=== PATIENT | male | born 1965 | race Two or more races ===

== ENCOUNTER 2024-10-27 08:19 | Inpatient (IN) | payer MEDICAID, OTHER ==
[~2024-10-27] VITALS: Ht 165.1 cm; Wt 61.9 kg
--- NOTE | 2024-10-27 08:50 | ED.PDOC ---
HPI Comments 59 year old male presents to the ED with a chief compliant of chest pain onset today (10/27/24) about 1 hour ago. Patient is from a boarding [facility] [place]. Patient states she woke up about 1 hour ago due to chest pain radiating to epigastric region. Patient has also been experiencing constipation, last bowel movement was 10 days ago. PMHx HTN, IN. Denies shortness of breath, nausea, vomiting, diarrhea,headache, dizziness, dysuria, hematuria. No other symptoms or modifying factors present at this time. Chief Complaint: Chest Pain Time Seen by MD: 08:22 Primary Care Provider: UNKNOWN Reviewed Notes: Medications, Allergies Allergies: Coded Allergies: NO KNOWN ALLERGIES (Unverified , 10/27/24) Information Source: Patient, Emergency Med Personnel Mode of Arrival: EMS Severity: Moderate Timing: Hours Duration: Since onset Prehospital treatment: None Location: Chest (L) Radiation: Abdomen Quality: Sharp Onset: At Rest Cardiac Risk Factors: HTN PE Risk Factors: None History of: Similar pain in past, IN Modifying Factors: Nothing Associated Signs and Symptoms: Abdominal Pain Past Medical History PAST MEDICAL HISTORY: HTN, IN Surgical History: PTCA Family History Family History: Reviewed,noncontributory to illness, No family hx of Cancer, No family hx of DM, No family hx of Heart luann, No family hx of HTN, No family hx ofKidney luann, No family hx of Liver luann, No family hx of Lung luann, No family hx of Stroke Social History Smoker: Non-Smoker Alcohol: Denies ETOH Use Drugs: Denies Drug Use Lives In: Assisted Care Constitutional: denies: chills, diaphoresis, fatigue, fever, malaise, sweats, weakness, others EENTM: denies: blurred vision, double vision, ear bleeding, ear discharge, ear drainage, ear pain, ear ringing, eye pain, eye redness, hearing loss, mouth pain, mouth swelling, nasal discharge, nose bleeding, nose congestion, nose pain, photophobia, tearing, throat pain, throat swelling, voice changes, others Respiratory: denies: cough, hemoptysis, orthopnea, SOB at rest, shortness of breath, SOB with excertion, stridor, wheezing, others Cardiovascular: reports: chest pain; denies: dizzy spells, diaphoresis, Dyspnea on exertion, edema, irregular heart beat, left arm pain, lightheadedness, palpitations, PND, syncope, others Gastrointestinal: reports: abdominal pain, constipated; denies: abdomen distended, blood streaked bowels, diarrhea, dysphagia, difficulty swallowing, hematemesis, melena, nausea, poor appetite, poor fluid intake, rectal bleeding, rectal pain, vomiting, others Genitourinary: denies: burning, dysuria, flank pain, frequency, hematuria, incontinence, penile discharge, penile sore, pain, testicle pain, testicle swelling, urgency, others Neurological: denies: dizziness, fainting, headache, left sided numbness, left sided weakness, numbness, paresthesia, pre-existing deficit, right sided numbness, right sided weakness, seizure, speech problems, tingling, tremors, weakness, others Musculoskeletal: denies: back pain, gout, joint pain, joint swelling, muscle pain, muscle stiffness, neck pain, others Integumetry: denies: bruises, change in color, change in hair/nails, dryness, laceration, lesions, lumps, rash, wounds, others Allergic/Immunocompromised: denies: Difficulty Healing, Frequent Infections, Hives, Itching, others Hematologic/Lymphatic: denies: anemia, blood clots, easy bleeding, easy bruising, swollen glands, others Endocrine: denies: excessive hunger, excessive sweating, excessive thirst, excessive urination, flushing, intolerance to cold, intolerance to heat, unexplained weight gain, unexplained weight loss, others Psychiatric: denies: anxiety, bipolar disorder, depression, hopeless, panic disorder, schizophrenia, sleepless, suicidal, others All Other Systems: Reviewed and Negative Physical Exam General Appearance: Moderate Distress, Normal HEENT: Normal ENT Inspection, Pharynx Normal, TMs Normal Neck: Full Range of Motion, Non-Tender, Normal, Normal Inspection Respiratory: Chest Non-Tender, Lungs Clear, No Accessory Muscle Use, No Respiratory Distress, Normal Breath Sounds Cardiovascular: No Edema, No JVD, No Murmur, No Gallop, Normal Peripheral Pulses, Regular Rate/Rhythm Breast Exam: Deferred Gastrointestinal: No Organomegaly, Non Tender, No Pulsatile Mass, Normal Bowel Sounds, Soft Genitalia: Deferred Pelvic: Deferred Rectal: Deferred Extremities: No calf tenderness, Normal capillary refill, Normal inspection, Normal range of motion, Non-tender, No pedal edema Musculoskeletal : Apperance: Normal Neurologic: Alert, 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 Was a procedure done?: No CP Differential Dx Differential Diagnosis: A-fib, A-Flutter, Angina, Anxiety / Panic Attack, Atrial Dysrhythmia, Electrolyte Disorder X-Ray, Labs, Meds, VS Vital Signs Date Time Temp Pulse Resp B/P (MAP) Pulse Ox O2 Delivery O2 Flow Rate FiO2 10/27/24 09:29 60 10/27/24 09:24 63 10/27/24 09:19 Room Air* 0 21 10/27/24 09:18 98.2 66 18 160/86 (110) 98 98.2 10/27/24 09:01 63 10/27/24 08:19 63 10/27/24 08:19 98.4 72 16 170/76 (107) 96 98.4 Lab Test 10/27/24 09:14 10/27/24 08:42 Range/Units Sodium Level Pending Potassium Level Pending Chloride Level Pending Carbon Dioxide Level Pending Anion Gap Pending Blood Urea Nitrogen Pending Creatinine Pending Glomerular Filtration Rate Calc Pending BUN/Creatinine Ratio Pending Serum Glucose Pending Calcium Level Pending White Blood Count 4.6 4.4-10.8 10^3/uL Red Blood Count 5.67 4.5-5.90 10^6/uL Hemoglobin 17.5 13.5-17.5 g/dL Hematocrit 53.1 H 41.0-53.0 % Mean Corpuscular Volume 93.7 80.0-100.0 fL Mean Corpuscular Hemoglobin 30.8 28.0-32.0 pg Mean Corpuscular Hemoglobin Concent 32.9 32.0-36.0 g/dL Red Cell Distribution Width 13.4 11.8-14.3 % Platelet Count 45 L 140-450 10^3/uL Mean Platelet Volume 9.4 6.9-10.8 fL Neutrophils (%) (Auto) 63.1 37.0-80.0 % Lymphocytes (%) (Auto) 24.9 10.0-50.0 % Monocytes (%) (Auto) 7.7 0.0-12.0 % Eosinophils (%) (Auto) 3.4 0.0-7.0 % Basophils (%) (Auto) 0.9 0.0-2.0 % Neutrophils # (Auto) 2.9 1.6-8.6 10 ^3/uL Lymphocytes # (Auto) 1.1 0.4-5.4 10 ^3/uL Monocytes # (Auto) 0.4 0-1.3 10 ^3/uL Eosinophils # (Auto) 0.2 0-0.8 10 ^3/uL Basophils # (Auto) 0 0-0.2 10 ^3/uL Nucleated Red Blood Cells 0.2 % Troponin I High Sensitivity 11 </=54 ng/L Patient alert. Complaining of chest pain. EKG reviewed does show changes. Vitals stable. Recently had a stent placement. Hemoglobin within normal limits. WBC within normal limits. Cardiac marker within normal limits. Reviewed his previous visit. Explained to the patient. Continue cardiac monitoring. Time of 1ST Reevaluation: 08:52 Reevaluation 1ST: Unchanged Patient Education/Counseling: Diagnosis, Treatment, Prognosis Family Education/Counseling: No Family Present Departure 1 Departure Time of Disposition: 09:39 Impression: Primary Impression: Chest pain of unknown etiology Disposition: ADMITTED INPATIENT Admit to: Med Surg Condition: Guarded Critical Care Note Critical Care Time?: Yes (90 min-critical care time only) Critical care comment: Continue monitor Stability Stability form required: No Heart Score Heart Score: Heart Score Response (Comments) Value History Slightly Suspicious 0 EKG Normal 0 Age 45-64 1 Risk Factors >3 or Hx ASHD 2 Troponin Normal limit 0 Total 3 I personally scribed for GINETTE AMADO MD ([email or web address]) on 10/27/24 at 08:50. Electronically submitted by Rhonda Rausch ([email or web address]). I personally scribed for GINETTE AMADO MD ([email or web address]) on 10/27/24 at 09:01. Electronically submitted by Rhonda Rausch ([email or web address]). GINETTE AMADO MD October 27, 2024 08:50
[2024-10-27 08:57] LABS: Basophils # (auto) 0 10 ^3/uL (0-0.2); Lymphocytes # (auto) 1.1 10 ^3/uL (0.4-5.4); Monocytes # (auto) 0.4 10 ^3/uL (0-1.3); Neutrophils # (auto) 2.9 10 ^3/uL (1.6-8.6); Nucleated Red Blood Cells % 0.2 %; Red Cell Distribution Width 13.4 % (11.8-14.3); White Blood Cell 4.6 10^3/uL (4.4-10.8)
[2024-10-27 09:02] LABS: Basophils % (auto) 0.9 % (0.0-2.0); Eosinophils # (auto) 0.2 10 ^3/uL (0-0.8); Eosinophils % (auto) 3.4 % (0.0-7.0); Hematocrit 53.1 % (41.0-53.0); Hemoglobin 17.5 g/dL (13.5-17.5); Lymphocytes % (auto) 24.9 % (10.0-50.0); Mean Corpuscular Hemoglobin 30.8 pg (28.0-32.0); Mean Corpuscular Hgb Conc. 32.9 g/dL (32.0-36.0); Mean Corpuscular Volume 93.7 fL (80.0-100.0); Monocytes % (auto) 7.7 % (0.0-12.0); Neutrophils % (auto) 63.1 % (37.0-80.0); Platelet Count (auto) 45 10^3/uL (140-450); Red Blood Cells 5.67 10^6/uL (4.5-5.90)
--- NOTE | 2024-10-27 09:31 | ECG ---
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
[2024-10-27 10:12] LABS: Anion Gap 7 (5-15); Calcium 9.8 mg/dL (8.7-10.4); Carbon Dioxide 24 mmol/L (20-31); Chloride 111 mmol/L (98-107); Potassium 3.8 mmol/L (3.5-5.1); Sodium 142 mmol/L (136-145)
[2024-10-27 10:21] LABS: BUN/Creatinine Ratio 10.7 (10.0-20.0); Blood Urea Nitrogen 9 mg/dL (9-23); Glucose 103 mg/dL (74-106)
--- NOTE | 2024-10-27 13:13 | DVH ---
Procedure: XY KUB ABDOMEN SINGLE VIEW Study Date and Requested Time: 10/27/2024 12:42 PM History: CONSTIPATION Comparison: None Findings/ Impression: Nonspecific bowel gas pattern. No evidence of bowel obstruction or ileus. Moderate amount of fecal ma terial within the colon. No abnormal calcifications are noted. The lung bases are clear. No evidence of acute bony abnormalities. Partially imaged short tubular density overlying the left femoral head w ith additional round densities overlying the left hemipelvis which are most likely external to the pa tient
[2024-10-27] MEDS ORDERED: ACETAMINOPHEN 325 MG TAB PO PRN (13:30)
[2024-10-27] MEDS ORDERED: ONDANSETRON HCL 4 MG/2 ML VIAL IV PRN (13:30)
[2024-10-27] MEDS ORDERED: TICA90TA PO (13:32)
[2024-10-27] MEDS ORDERED: FURO20TA4 PO (13:32)
[2024-10-27] MEDS ORDERED: INSU100S4 SC (13:32)
[2024-10-27] MEDS ORDERED: CARV6.2551 PO (13:32)
[2024-10-27] MEDS ORDERED: ATOR-507 PO (13:32)
[2024-10-27] MEDS ORDERED: DAPA1TAB4 PO (13:32)
[2024-10-27] MEDS ORDERED: HYDR50TA47 PO (13:32)
[2024-10-27] MEDS ORDERED: GAB100C PO (13:32)
[2024-10-27] MEDS ORDERED: SACU1TAB PO (13:32)
--- NOTE | 2024-10-27 13:56 | DVHHP2 ---
History of Present Illness Reason for Visit: Chest pain History of Present Illness Howard Penn is a 59-year-old male with past medical history of CVA, RI, and hypertension, who came in for chest pain. Patient is a poor historian. He states his stroke has made it difficult for him to remember things. He states he woke up this morning with right sided chest pain that radiates to his right shoulder. He states the pain radiates across the top of his chest and that he thinks it is due to stress. [place] and the place stresses him out. He states there are 3 people in a room and it is a stressful environment. He states he has chronic pain in his right arm/shoulder due to a stroke and having a stent placed there. 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 Past Surgical History: Other (Stents placed to neck and right arm) Smoke: <1 pack per day ALCOHOL: none Drugs: None Lives: Other (board and care facility) Domestic Violence: Neg Review of Systems Constitutional: No: Fever, Chills, Sweats, Weakness, Malaise, Other Eyes: No: Pain, Vision change, Conjunctivae inflammation, Eyelid inflammation, Other, Redness ENT: No: Ear pain, Ear discharge, Nose pain, Nose discharge, Nose congestion, Mouth pain, Mouth swelling, Throat pain, Throat swelling, Other Respiratory: No: Cough, Dry, Shortness of breath, SOB with excertion, Wheezing, Hemoptysis, Pleuritic Pain, Sputum, Wheezing, Other Cardiovascular: Chest Pain; No: Palpitations, Orthopnea, Paroxysmal Noc. Dyspnea, Edema, Lt Headedness, Other Gastrointestinal: Constipation; No: Nausea, Vomiting, Abdominal Pain, Diarrhea, Melena, Hematochezia, Other Genitourinary: No Dysuria, No Frequency, No Incontinence, No Hematuria, No Retention, No Other Musculoskeletal: No: other, neck pain, shoulder pain, arm pain, back pain, hand pain, leg pain, foot pain Skin: No: Rash, Lesions, Jaundice, Bruising, Other Neurological: No: Weakness, Numbness, Incoordination, Change in speech, Confusion, Seizures, Other Allergies: Coded Allergies: NO KNOWN ALLERGIES (Unverified , 10/27/24) Medications Current Medications Medications Dose Ordered Sig/Anastasiya Route Start Time Stop Time Status Last Admin Dose Admin Acetaminophen/ Hydrocodone Bitart 1 tab Q4HP PRN PO 10/27/24 13:30 UNV Ondansetron HCl 4 mg Q4HP PRN IV 10/27/24 13:30 UNV Docusate Sodium 100 mg BIDPRN PRN PO 10/27/24 13:30 UNV Acetaminophen 650 mg Q6HP PRN PO 10/27/24 13:30 UNV Lactulose 30 ml DAILYPRN PRN PO 10/27/24 13:30 UNV Furosemide 20 mg DAILY PO 10/28/24 10:00 UNV Gabapentin 100 mg TID PO 10/27/24 14:00 UNV Sacubitril/ Valsartan 1 tab DAILY PO 10/28/24 10:00 UNV Ticagrelor 90 mg BID PO 10/27/24 22:00 UNV Patient Own Medication 1 tab HS PO 10/27/24 22:00 UNV Patient Own Medication 1 tab BID PO 10/27/24 22:00 UNV Patient Own Medication 1 tab DAILY PO 10/28/24 10:00 UNV Patient Own Medication 1 tab TID PO 10/27/24 14:00 UNV Patient Own Medication 10 unit DAILY SC 10/28/24 10:00 UNV Exam Vital Signs Vital Signs Date Time Temp Pulse Resp B/P (MAP) Pulse Ox O2 Delivery O2 Flow Rate FiO2 10/27/24 12:00 62 15 148/67 (94) 95 10/27/24 09:19 Room Air* 0 21 10/27/24 09:18 98.2 98.2 General Appearance: Alert, Oriented X3, Cooperative HEENT: Atraumatic, PERRLA Respiratory: Clear to auscultation, Normal air movement Cardiovascular: Regular rate, Normal S1, Normal S2 Abdominal: Normal bowel sounds, Soft, No tenderness Extremities: No clubbing, No cyanosis, No edema, Normal pulses, Other (weakness in right arm) Skin: No breakdown, No significant lesion Neuro: Other (decreased strength on right side, uses a walker to ambulate) Psych/Mental Status: Mood NL Labs/Xrays Labs Test 10/27/24 11:59 10/27/24 09:36 10/27/24 08:42 Range/Units Troponin I High Sensitivity 12 </=54 ng/L Sodium Level 142 136-145 mmol/L Potassium Level 3.8 3.5-5.1 mmol/L Chloride Level 111 H 98-107 mmol/L Carbon Dioxide Level 24 20-31 mmol/L Anion Gap 7 5-15 Blood Urea Nitrogen 9 9-23 mg/dL Creatinine 0.84 0.700-1.30 mg/dL Glomerular Filtration Rate Calc 101 >90 mL/min BUN/Creatinine Ratio 10.7 10.0-20.0 Serum Glucose 103 74-106 mg/dL Calcium Level 9.8 8.7-10.4 mg/dL White Blood Count 4.6 4.4-10.8 10^3/uL Red Blood Count 5.67 4.5-5.90 10^6/uL Hemoglobin 17.5 13.5-17.5 g/dL Hematocrit 53.1 H 41.0-53.0 % Mean Corpuscular Volume 93.7 80.0-100.0 fL Mean Corpuscular Hemoglobin 30.8 28.0-32.0 pg Mean Corpuscular Hemoglobin Concent 32.9 32.0-36.0 g/dL Red Cell Distribution Width 13.4 11.8-14.3 % Platelet Count 45 L 140-450 10^3/uL Mean Platelet Volume 9.4 6.9-10.8 fL Neutrophils (%) (Auto) 63.1 37.0-80.0 % Lymphocytes (%) (Auto) 24.9 10.0-50.0 % Monocytes (%) (Auto) 7.7 0.0-12.0 % Eosinophils (%) (Auto) 3.4 0.0-7.0 % Basophils (%) (Auto) 0.9 0.0-2.0 % Neutrophils # (Auto) 2.9 1.6-8.6 10 ^3/uL Lymphocytes # (Auto) 1.1 0.4-5.4 10 ^3/uL Monocytes # (Auto) 0.4 0-1.3 10 ^3/uL Eosinophils # (Auto) 0.2 0-0.8 10 ^3/uL Basophils # (Auto) 0 0-0.2 10 ^3/uL Nucleated Red Blood Cells 0.2 % Procedure: XY KUB ABDOMEN SINGLE VIEW Findings/ Impression: Nonspecific bowel gas pattern. No evidence of bowel obstruction or ileus. Moderate amount of fecal material within the colon. No abnormal calcifications are noted. The lung bases are clear. No evidence of acute bony abnormalities. 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 Procedure Category Date Status Time Kub Abdomen Single XY 10/27/24 Resulted View 12:19 Admit ADMIT 10/27/24 Transmitted 13:26 Code Status CODE 10/27/24 Transmitted 13:26 2 Gm Sodium Diet DIET 10/27/24 Transmitted Lunch Hydrocodone-Acet PHA 10/27/24 Logged 5/325mg Tab (Prospect 13:30 Ondansetron Hcl PHA 10/27/24 Logged (Zofran) 13:30 Docusate Sodium PHA 10/27/24 Logged Capsule (Colace 13:30 Fall Risk Precautions LUKAS 10/27/[address] 13:26 Complete Blood Count LAB 10/28/24 Verified 04:00 Comprehensive LAB 10/28/24 Verified Metabolic Panel 04:00 Pt Request For Service PT 10/27/24 Logged 13:26 Condition: Serious LUKAS 10/27/24 In Process 13:26 Acetaminophen Tablet PHA 10/27/24 Logged (Tylenol Tablet) 13:30 Glycerin Adult PHA 10/27/24 Logged Suppository (Glycerin 13:30 Lactulose Oral PHA 10/27/24 Logged 13:30 Furosemide Tablet PHA 10/28/24 Logged (Lasix Tablet) 10:00 Gabapentin Capsule PHA 10/27/24 Logged (Neurontin Capsule) 14:00 Sacubitril-Valsartan PHA 10/28/24 Logged (Entresto 24-26 Mg 10:00 Ticagrelor (Brilinta) PHA 10/27/24 Logged 22:00 (Nf) Atorvastatin PHA 10/27/24 Logged Calcium (Lipitor) 22:00 (Nf) Carvedilol PHA 10/27/24 Logged 22:00 (Nf) Dapagliflozin PHA 10/28/24 Logged Propanediol (Farxiga) 10:00 (Nf) Hydralazine Hcl PHA 10/27/24 Logged 14:00 (Nf) Insulin PHA 10/28/24 Logged Glargine-Yfgn 10:00 Date of Service: October 27, 2024 Billing Provider: GRZEGORZ [facility] Common Visit Codes: [id number] INP/OBS CARE (MOD) GRZEGORZ [facility] October 27, 2024 13:56
[2024-10-27] MEDS ORDERED: DEXTROSE (50%) 50ML SYRG IV PRN (14:00)
[2024-10-27] MEDS: GABAPENTIN 100 MG CAP PO SCH (14:14)
[2024-10-27] MEDS: GLYCERIN ADULT RECTAL SUPP PR ONE (14:54)
[2024-10-27] MEDS: InsuLIN REG 1unit/0.01ml Soln (100units/ml) SC SCH ×2 (15:58→21:34)
[2024-10-27] MEDS: ACCU-CHEK COMFORT CURVE STRIP VI SCH (15:58)
[2024-10-27] MEDS: LACTULOSE 20Gm/30ML SOLN PO PRN (18:00)
--- NOTE | 2024-10-27 19:16 | ECG ---
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
[2024-10-27] MEDS: TICAGRELOR 90 MG TAB PO SCH (21:13)
[2024-10-27] MEDS: hydrALAZINE HCL 25 MG TAB PO SCH (21:13)
[2024-10-27] MEDS: CARVEDILOL 3.125 MG TAB PO SCH (21:13)
[2024-10-27] MEDS: ATORVASTATIN 20 MG TAB PO SCH (21:13)
[2024-10-27] MEDS ORDERED: PATIENTS OWN MEDICATION (Atorvastatin Calcium (Lipitor) 1 TAB) PO SCH (22:00)
[2024-10-28 06:40] LABS: Basophils # (auto) 0.1 10 ^3/uL (0-0.2); Basophils % (auto) 0.9 % (0.0-2.0); Eosinophils # (auto) 0.2 10 ^3/uL (0-0.8); Eosinophils % (auto) 2.5 % (0.0-7.0); Hematocrit 48.9 % (41.0-53.0); Hemoglobin 16.5 g/dL (13.5-17.5); Lymphocytes # (auto) 1.3 10 ^3/uL (0.4-5.4); Lymphocytes % (auto) 19.5 % (10.0-50.0); Mean Corpuscular Hemoglobin 30.6 pg (28.0-32.0); Mean Corpuscular Hgb Conc. 33.7 g/dL (32.0-36.0); Mean Corpuscular Volume 90.8 fL (80.0-100.0); Monocytes # (auto) 0.5 10 ^3/uL (0-1.3); Monocytes % (auto) 7.7 % (0.0-12.0); Neutrophils # (auto) 4.6 10 ^3/uL (1.6-8.6); Neutrophils % (auto) 69.4 % (37.0-80.0); Platelet Count (auto) 216 10^3/uL (140-450); Red Blood Cells 5.39 10^6/uL (4.5-5.90); Red Cell Distribution Width 12.8 % (11.8-14.3); White Blood Cell 6.6 10^3/uL (4.4-10.8)
[2024-10-28 07:04] LABS: Alanine Aminotransferase 11 U/L (7-40); Albumin 4.5 g/dL (3.2-4.8); Alkaline Phosphatase 74 U/L (46-116); Anion Gap 8 (5-15); Blood Urea Nitrogen 13 mg/dL (9-23); Calcium 9.3 mg/dL (8.7-10.4); Carbon Dioxide 23 mmol/L (20-31); Glucose 87 mg/dL (74-106); Potassium 3.9 mmol/L (3.5-5.1); Sodium 141 mmol/L (136-145); Total Protein 6.8 g/dL (5.7-8.2)
[2024-10-28 07:05] LABS: Bilirubin, Total 0.5 mg/dL (0.2-1.0)
[2024-10-28 07:07] LABS: Aspartate Aminotransferase 10 U/L (13-40); Chloride 110 mmol/L (98-107)
[2024-10-28 07:47] VITALS: PULSE 81; RESP 12; O2SAT 99
[2024-10-28] MEDS: SACUBITRIL-VALSARTAN 24mg/26mg TAB PO SCH (10:13)
[2024-10-28] MEDS: FUROSEMIDE 20 MG TAB PO SCH (10:14)
[2024-10-28 15:10] VITALS: BP 165/93; PULSE 62; RESP 17; TEMP 97.7; O2SAT 97
[2024-10-28] MEDS: HYDROcodone-ACET 5/325MG TAB PO PRN (15:53)
[2024-10-28] MEDS: EMPAGLIFLOZIN 10 MG TAB PO SCH (16:29)
--- NOTE | 2024-10-28 16:30 | DVHPN2 ---
Subjective no chest pain Changes from previous H/P or p: No Changes Eyes: No Pain, No Vision change, No Conjunctivae inflammation, No Eyelid inflammation, No Other, No Redness ENT: No Ear pain, No Ear discharge, No Nose pain, No Nose discharge, No Nose congestion, No Mouth pain, No Mouth swelling, No Throat pain, No Throat swelling, No Other Cardiovascular: Chest Pain; No Palpitations, No Orthopnea, No Paroxysmal Noc. Dyspnea, No Edema, No Lt Headedness, No Other Respiratory: No Cough, No Dry, No Shortness of breath, No SOB with excertion, No Wheezing, No Hemoptysis, No Pleuritic Pain, No Sputum, No Other Gastrointestinal: No Nausea, No Vomiting, No Abdominal Pain, No Diarrhea; C onstipation; No Melena, No Hematochezia, No Other Genitourinary: No Dysuria, No Frequency, No Incontinence, No Hematuria, No Retention, No Other Musculoskeletal: No other, No neck pain, No shoulder pain, No arm pain, No back pain, No hand pain, No leg pain, No foot pain Skin: No Rash, No Lesions, No Jaundice, No Bruising, No Other Objective Vitals Vital Signs Date Time Temp Pulse Resp B/P (MAP) Pulse Ox O2 Delivery O2 Flow Rate FiO2 10/28/24 15:10 97.7 62 17 165/93 (117) 97 97.7 10/28/24 07:47 Room Air* 0 21 General Appearance: Alert, Oriented X3 Cardiovascular: Regular rate, Normal S1, Normal S2 Medications Current Medications Medications Dose Ordered Sig/Anastasiya Route Start Time Stop Time Status Last Admin Dose Admin Acetaminophen/ Hydrocodone Bitart 1 tab Q4HP PRN PO 10/27/24 13:30 10/28/24 15:53 1 TAB Ondansetron HCl 4 mg Q4HP PRN IV 10/27/24 13:30 Docusate Sodium 100 mg BIDPRN PRN PO 10/27/24 13:30 Acetaminophen 650 mg Q6HP PRN PO 10/27/24 13:30 Lactulose 30 ml DAILYPRN PRN PO 10/27/24 13:30 10/28/24 14:25 30 ML Furosemide 20 mg DAILY PO 10/28/24 10:00 10/28/24 10:14 20 MG Gabapentin 100 mg TID PO 10/27/24 14:00 10/28/24 14:20 100 MG Sacubitril/ Valsartan 1 tab DAILY PO 10/28/24 10:00 10/28/24 10:13 1 TAB Ticagrelor 90 mg BID PO 10/27/24 22:00 10/28/24 10:13 90 MG Patient Own Medication 1 tab HS PO 10/27/24 22:00 UNV Carvedilol 6.25 mg BID PO 10/27/24 22:00 10/28/24 10:13 6.25 MG Hydralazine HCl 50 mg TID PO 10/27/24 22:00 10/28/24 14:22 50 MG Insulin Glargine 10 units HS SC 10/28/24 22:00 Diagnostic Test (Pha) 1 strip ACHS 10/27/24 17:00 10/28/24 11:53 1 STRIP Insulin Human Regular HS SC 10/27/24 22:00 Insulin Human Regular AC SC 10/27/24 17:00 Dextrose 50 ml UD PRN IV 10/27/24 14:00 Atorvastatin Calcium 40 mg HS PO 10/27/24 22:00 10/27/24 21:13 40 MG Empaglifozin 10 mg DAILY PO 10/28/24 15:58 Laboratory Results Laboratory Tests 10/28/24 05:23 Chemistry Test 10/28/24 05:23 Albumin 4.5 g/dL (3.2-4.8) Calcium Level 9.3 mg/dL (8.7-10.4) Total Protein 6.8 g/dL (5.7-8.2) LFT Test 10/28/24 05:23 Alanine Aminotransferase (ALT) 11 U/L (7-40) Alkaline Phosphatase 74 U/L (46-116) Aspartate Amino Transferase (AST) 10 U/L (13-40) L Total Bilirubin 0.5 mg/dL (0.2-1.0) Assessment/Plan Assessment/Plan Constipation, Chest pain, Hypertension, Hyperlipidemia, Regular diet Trend troponins Plan discussed with: Patient Date of Service: October 28, 2024 Billing Provider: PAULETTE RIVERO MD Common Visit Codes: [id number] INP/OBS CARE(HIGH) PAULETTE RIVERO MD October 28, 2024 16:30
[2024-10-28 17:00] VITALS: BP 152/84; PULSE 69; RESP 17; TEMP 98.2; O2SAT 95
[2024-10-28] MEDS ORDERED: LISINOPRIL 5 MG TAB PO ONE (17:45)
[2024-10-28] MEDS: amLODIPine BESYLATE 5 MG TAB PO ONE (18:04)
[2024-10-28 18:55] VITALS: BP 149/97; PULSE 79
[2024-10-28] MEDS: DOCUSATE SOD 100 MG CAP PO PRN (20:27)
[2024-10-28 21:00] VITALS: BP 137/80; PULSE 78; RESP 18; TEMP 97.6; O2SAT 95
[2024-10-28] MEDS: INSULIN LANTUS (GLARGINE) 1 /0.01ml (100units/ml) SC SCH (21:25)
[2024-10-28] MEDS: MELATONIN 5 MG TAB PO ONE (22:30)
[2024-10-29] VITALS (7 sets, daily range): BP systolic 122–148; BP diastolic 69–78; PULSE 62–77; RESP 14–17; TEMP 36.6; O2SAT 94–100
[2024-10-29] MEDS: amLODIPine BESYLATE 5 MG TAB PO SCH (08:33)
[2024-10-29] MEDS ORDERED: LISINOPRIL 5 MG TAB PO SCH (10:00)
[2024-10-29] MEDS: FLEET ENEMA(ADULT) 135 ML PR ONE (16:37)
--- NOTE | 2024-10-29 18:29 | DVHDS2 ---
Discharge Summary Date of Admission October 27, 2024 at 13:26 Date of Discharge: October 29, 2024 Labs/Diagnostic Data: Laboratory Results Test 10/29/24 16:15 10/28/24 05:23 10/27/24 11:59 POC Glucose 134 mg/dl (70-106) White Blood Count 6.6 10^3/uL (4.4-10.8) Red Blood Count 5.39 10^6/uL (4.5-5.90) Hemoglobin 16.5 g/dL (13.5-17.5) Hematocrit 48.9 % (41.0-53.0) Mean Corpuscular Volume 90.8 fL (80.0-100.0) Mean Corpuscular Hemoglobin 30.6 pg (28.0-32.0) Mean Corpuscular Hemoglobin Concent 33.7 g/dL (32.0-36.0) Red Cell Distribution Width 12.8 % (11.8-14.3) Platelet Count 216 10^3/uL (140-450) Mean Platelet Volume 8.6 fL (6.9-10.8) Neutrophils (%) (Auto) 69.4 % (37.0-80.0) Lymphocytes (%) (Auto) 19.5 % (10.0-50.0) Monocytes (%) (Auto) 7.7 % (0.0-12.0) Eosinophils (%) (Auto) 2.5 % (0.0-7.0) Basophils (%) (Auto) 0.9 % (0.0-2.0) Neutrophils # (Auto) 4.6 10 ^3/uL (1.6-8.6) Lymphocytes # (Auto) 1.3 10 ^3/uL (0.4-5.4) Monocytes # (Auto) 0.5 10 ^3/uL (0-1.3) Eosinophils # (Auto) 0.2 10 ^3/uL (0-0.8) Basophils # (Auto) 0.1 10 ^3/uL (0-0.2) Nucleated Red Blood Cells 0.0 % Sodium Level 141 mmol/L (136-145) Potassium Level 3.9 mmol/L (3.5-5.1) Chloride Level 110 mmol/L (98-107) Carbon Dioxide Level 23 mmol/L (20-31) Anion Gap 8 (5-15) Blood Urea Nitrogen 13 mg/dL (9-23) Creatinine 0.93 mg/dL (0.700-1.30) Glomerular Filtration Rate Calc 95 mL/min (>90) BUN/Creatinine Ratio 14.0 (10.0-20.0) Serum Glucose 87 mg/dL (74-106) Calcium Level 9.3 mg/dL (8.7-10.4) Total Bilirubin 0.5 mg/dL (0.2-1.0) Aspartate Amino Transferase (AST) 10 U/L (13-40) Alanine Aminotransferase (ALT) 11 U/L (7-40) Alkaline Phosphatase 74 U/L (46-116) Total Protein 6.8 g/dL (5.7-8.2) Albumin 4.5 g/dL (3.2-4.8) Troponin I High Sensitivity 12 ng/L (</=54) Other Laboratory Tests 10/28/24 05:23 Brief Hx & Hospital Course: Howard Penn is a 59-year-old male with past medical history of CVA, TX, and hypertension, who came in for chest pain. Patient is a poor historian. He states his stroke has made it difficult for him to remember things. He states he woke up this morning with right sided chest pain that radiates to his right shoulder. He states the pain radiates across the top of his chest and that he thinks it is due to stress. [place] and the place stresses him out. He states there are 3 people in a room and it is a stressful environment. He states he has chronic pain in his right arm/shoulder due to a stroke and having a stent placed there. Cardiovascular: HTN, [place] Troponins negative chest pain resolved Condition at Discharge: Good Final Diagnosis/Problems List constipation non cardiac chest pain Discharge Disposition: Home Discharge Instruct/Medications Diet: Regular Activity: No Restrictions, As Tolerated Follow Up/Referral: PCP in 7 days Medications: same home medications Discharge Statement: "Patient was advised to return to the ER or call 911 if any headaches, dizziness, shortness of breath, chest pain, abdominal pain, bleeding, fevers, or worsening of medical condition. Patient was counseled about treatment plan, medications, possible side effects, patientverbalized understanding. All questions were answered to the best of my ability. This discharge took greater then 30 minutes in planning, reviewing documentation, counseling the patient, and discussing with other team members." ASSESSMENT ASSESSMENT Assessment constipation Date of Service: October 29, 2024 Billing Provider: PAULETTE RIVERO MD Common Visit Codes: 28182-TOP/OBS DISCH DAY >30min PAULETTE RIVERO MD October 29, 2024 18:29
== END 2024-10-29 20:47 | disposition home or self-care (01) | DRG 203 ==
LOC: EDBD 08:19 → ER 08:19 → OVERFLOW 13:26 → CENTRAL 10-28 15:04
PROVIDERS: ADMIT Hospitalist; ATTEND Hospitalist
DX: M94.0 Chondrocostal junction syndrome [Tietze] (principal); E78.5 Hyperlipidemia, unspecified; I25.2 Old myocardial infarction; I10 Essential (primary) hypertension; K56.41 Fecal impaction; K59.00 Constipation, unspecified; G89.29 Other chronic pain; M79.601 Pain in right arm; Z86.73 Personal history of transient ischemic attack (TIA), and cerebral infarction without residual deficits; Z91.81 History of falling; Z87.891 Personal history of nicotine dependence
CPT/HCPCS: 36415; 74018; 80048; 80053; 82962; 84484; 85025; 93005; 97163; 99291; G0378; J1815